=== PATIENT | female | born 1960 | race Caucasian/White ===

== ENCOUNTER → 2016-10-23 | Outpatient (CLI) | payer MEDICARE, MEDICAID ==
[~2016-10-23] MED LIST: ASPIRIN 81MG TA81 MG PO; GABAPENTIN300 MG PO; HYDROCHLOROTH12.5 M1 PO; Isosorbide Mono30 MG PO; LEXAPRO 20 MG T20 MG PO; NEXIUM40 MG PO; NORVASC 10MG. T10 MG PO; PRAVASTATIN 40M40 MG PO; PREDNISONE 20MG20 MG PO; ULTRAM50 MG PO; ZOCOR20 MG PO
[2016-10-23 17:21] LABS: AMPHETAMINES/METAMPHETAMINES NEGATIVE ng/mL (<1000)
[2016-11-02 12:36] LABS: Opiates Negative (Cutoff=100)
== END ==
LOC: LAB 16:09
PROVIDERS: Emergency Medicine
DX: Z79.899 Other long term (current) drug therapy (principal)

== ENCOUNTER → 2017-05-10 | Outpatient (CLI) | payer MEDICARE, MEDICAID ==
[2017-05-10 20:31] LABS: AMPHETAMINES/METAMPHETAMINES NEGATIVE ng/mL (<1000)
== END ==
LOC: LAB 18:23
PROVIDERS: Emergency Medicine
DX: Z79.899 Other long term (current) drug therapy (principal)

== ENCOUNTER → 2017-07-07 | Outpatient (CLI) | payer MEDICARE, MEDICAID ==
[~2017-07-07] MED LIST changes: +ATORVASTATIN CA40 MG PO; +BISOPROLOL 5MG T5 MG PO; +CIPRO 500MG TA500 MG PO; +CLOPIDOGREL75 MG PO; +OXYCODONE AND A1 TA4 PO
[2017-07-07 18:03] LABS: AMPHETAMINES/METAMPHETAMINES NEGATIVE ng/mL (<1000)
== END ==
LOC: LAB 17:18
PROVIDERS: Emergency Medicine
DX: Z79.899 Other long term (current) drug therapy (principal)